=== PATIENT | female | born 1960 | race Caucasian/White ===

== ENCOUNTER 2016-11-13 13:12 | Emergency (ER) | payer BC ==
[2012-04-25 13:47] VITALS: BMI 18.7
== END 2016-11-13 16:36 | disposition home or self-care (01) ==
LOC: D.ER 13:12
DX: R07.89 Other chest pain (principal); J20.9 Acute bronchitis, unspecified; E03.9 Hypothyroidism, unspecified; F17.200 Nicotine dependence, unspecified, uncomplicated

== ENCOUNTER → 2017-03-16 10:00 | Outpatient (CLI) | payer BC ==
[2012-04-25 13:47] VITALS: BMI 18.7
== END | disposition home or self-care (01) ==
LOC: D.US 03-08 15:30
DX: E04.9 Nontoxic goiter, unspecified (principal)